=== PATIENT | male | born 1995 | race African-American/Black ===

== ENCOUNTER 2017-04-21 16:30 | Emergency (ER) | payer SELFPAY ==
--- NOTE | 2017-04-21 18:25 | RADIOLOGY REPORT (SQ) ---
EXAM DESCRIPTION: FOOT RIGHT COMPLETE COMPLETED DATE/TIME: 04/21/2017 6:09 pm REASON FOR STUDY: Fractured 4 toe COMPARISON: None. NUMBER OF VIEWS: Three views. TECHNIQUE: AP, lateral and oblique radiographic images acquired of the right foot. LIMITATIONS: None. FINDINGS: MINERALIZATION: Normal. BONES: No acute fracture or dislocation. No worrisome bone lesions. JOINTS: No effusions. SOFT TISSUES: There appears to be a portion of a sewing needle in the soft tissues near the 1st metat arsal-phalangeal joint. OTHER: No other significant finding. IMPRESSION: No acute osseous abnormality. Findings described TECHNICAL DOCUMENTATION: JOB ID: [id number] [employer]- All Rights Reserved
--- NOTE | 2017-04-21 18:30 | ER Document Report ---
ED Extremity Problem, Lower - General Chief Complaint: Toe Injury Stated Complaint: SWOLLEN TOE Time Seen by Provider: 04/21/17 17:35 Mode of Arrival: Ambulatory Information source: Patient, Friend Notes: Patient is a 19-year-old black male comes emergency room complaining of hitting his right fourth toe on the corner of a wall or door early this morning. He was barefoot when he did so he felt a crack and a pop and it has turned black and blue and swollen. Patient states it was somewhat deformed but somehow has worked his way back to straight. Is complaining of pain and discomfort. TRAVEL OUTSIDE OF THE [place] IN LAST 30 DAYS: No - HPI Patient complains to provider of: Altered sensation, Pain, Swelling Location: 4th Toe Occurred: This morning Where: Home Onset/Duration: Sudden Quality of pain: Sharp, Stabbing, Throbbing Severity: Moderate Pain Level: 3 Context: Barefoot, Direct blow Recent injury: Yes Associated symptoms: denies: Chest pain, Chills, Dizzy, Fainting, Fever, [place] a crack, [place] a pop, Hurts to breath, Painful ambulation, Rapid heart rate, Seizure, Short of breath, Sweaty, Unable to bear weight, Weak, Other Exacerbated by: Movement, Walking Relieved by: Nothing - Related Data Allergies/Adverse Reactions: No Known Allergies Allergy (Verified 04/21/17 16:31) Past Medical History - General Information source: Patient - Social History Smoking Status: Current Every Day Smoker Cigarette use (# per day): Yes Chew tobacco use (# tins/day): No Smoking Education Provided: Yes Frequency of alcohol use: None Drug Abuse: None Occupation: Student human resources talent manager Lives with: Family Family History: Reviewed & Not Pertinent Review of Systems - Review of Systems Constitutional: No symptoms reported EENT: No symptoms reported Cardiovascular: No symptoms reported Respiratory: No symptoms reported Gastrointestinal: No symptoms reported Genitourinary: No symptoms reported Male Genitourinary: No symptoms reported Musculoskeletal: Joint pain, Joint swelling, Muscle pain Skin: Change in color Hematologic/Lymphatic: No symptoms reported Neurological/Psychological: No symptoms reported -: Yes All other systems reviewed and negative Physical Exam - Vital signs Vitals: Temp Pulse Resp BP Pulse Ox 99.8 F 77 14 132/70 H 100 04/21/17 16:40 04/21/17 16:40 04/21/17 16:40 04/21/17 16:40 04/21/17 16:40 Interpretation: Normal - General General appearance: Appears well, Alert - Respiratory Respiratory status: No respiratory distress Breath sounds: Normal. No: Decreased air movement, Nonproductive cough, Productive cough, Rales, Rhonchi, Stridor, Wheezing, Other - Cardiovascular Rhythm: Regular Heart sounds: Normal auscultation Murmur: No - Extremities General upper extremity: Normal inspection, Normal strength General lower extremity: Tender, Edema. No: Normal inspection, Nontender, Normal color, Normal ROM, Normal strength, Normal temperature, Normal weight bearing, Gus's sign, Other Foot: Tender, Ecchymosis, Edema, Other - Examination of patient's right fourth toe shows there to be moderate ecchymosis to the toe circumferentially. There is tenderness to palpation. Most of the pain though is at the distal DIP decreased flexion-extension of the joint space area. Patient has flexion and extension with the toe itself. Has decreased strength with resistance. - Neurological Neuro grossly intact: Yes Cognition: Normal Orientation: AAOx4 Jonathan Coma Scale Eye Opening: Spontaneous Jonathan Coma Scale Verbal: Oriented Rozet Coma Scale Motor: Obeys Commands Jonathan Coma Scale Total: 15 Speech: Normal Course - Vital Signs Vital signs: Temp Pulse Resp BP Pulse Ox 99.8 F 77 14 132/70 H 100 04/21/17 16:40 04/21/17 16:40 04/21/17 16:40 04/21/17 16:40 04/21/17 16:40 Procedures - Immobilization Right Toe 4th digit Time completed: 18:37 Pre-Proc Neuro Vasc Exam: Normal Immobilizer type: Other - Jose D tape third and fourth toes right foot Performed by: PCT Post-Proc Neuro Vasc Exam: Normal Alignment checked and good: Yes Discharge - Discharge Clinical Impression: Contusion of fourth toe, right Qualifiers: Encounter type: initial encounter Qualified Code(s): S90.121A - Contusion of right lesser toe(s) without damage to nail, initial encounter Condition: Good Disposition: HOME, SELF-CARE Instructions: Contusion ([facility]), Sprained Toe ([facility]) Additional Instructions: As we discussed home and ice to the toe 2-3 times a day for just a few minutes. Ibuprofen for pain and discomfort as we have also discussed. Jose D taping the toes will help give support and feel little better. I would highly recommend doing this daily while ambulatory going out to work or school. At home at night you may on tape it if it feels better. Should you have any concerns or problems return to ER for a recheck. You go back to work no on periods of standing for the next 3 days light duty only. Forms: Elevated Blood Pressure
[2017-04-21 19:08] VITALS: BP 137/60
== END 2017-04-21 19:08 | disposition home or self-care (01) ==
LOC: ER 16:30
DX: S90.121A Contusion of right lesser toe(s) without damage to nail, initial encounter (principal); W22.01XA Walked into wall, initial encounter; F17.210 Nicotine dependence, cigarettes, uncomplicated
CPT/HCPCS: 99283